=== PATIENT | male | born 1990 | race American Indian/Alaskan Native ===

== ENCOUNTER 2018-02-25 18:18 | Emergency (ER) | payer MEDICAID ==
[2018-02-25 18:19] VITALS: BMI 20.5
[2018-02-25] MEDS ORDERED: cefTRIAXone (Rocephin) 250 mg Inj IM STA (18:56)
[2018-02-25 19:16] VITALS: BP 99/58; RESP 18; TEMP 98.8
--- NOTE | 2018-02-25 19:30 | ED PDOC ---
Arrival/HPI - General Chief Complaint: Male Genitourinary Time Seen by Provider: 02/25/18 18:39 Historian: Patient - History of Present Illness Narrative History of Present Illness (Text): 02/25/18 19:30 27-year-old male presents today with penile discharge. Patient states that he had unprotected sex on 4 days ago and yesterday developed dysuria and noticed a white discharge from the penis. Patient denies testicular pain. Denies fevers or chills. Denies nausea vomiting diarrhea constipation. Denies abdominal pain. No dizziness or weakness. No other complaints patient states he was diagnosed with STD approximately 10 years ago as well. Past Medical History - Provider Review Nursing Documentation Reviewed: Yes - Travel History Have you recently traveled outside [place] w/in the past 3 mons?: No - Infectious Disease Hx of Infectious Diseases: None - Tetanus Immunization Tetanus Immunization: Unknown - Past Medical History Past Medical History: No Previous - Psychiatric Hx Depression: No Hx Emotional Abuse: No Hx Physical Abuse: No Hx Substance Use: No - Past Surgical History Past Surgical History: No Previous - Anesthesia Hx Anesthesia: No Hx Anesthesia Reactions: No Hx Malignant Hyperthermia: No - Suicidal Assessment Feels Threatened In Home Enviroment: No Family/Social History - Physician Review Nursing Documentation Reviewed: Yes Family/Social History: Unknown Family HX Smoking Status: Light Smoker < 10 Cigarettes Daily Hx Alcohol Use: Yes Frequency of alcohol use: Socially Hx Substance Use: No Hx Substance Use Treatment: No Allergies/Home Meds Allergies/Adverse Reactions: Allergies No Known Allergies Allergy (Verified 03/25/12 19:57) Home Medications: Home Meds Medication Instructions Recorded Confirmed No Known Home Med 03/25/12 03/25/12 Review of Systems - Review of Systems Constitutional: absent: Fatigue, Fevers Respiratory: absent: SOB, Cough Cardiovascular: absent: Chest Pain, Palpitations Gastrointestinal: absent: Abdominal Pain, Nausea, Vomiting Genitourinary Male: Dysuria, Other (penile discharge). absent: Frequency, Hematuria Musculoskeletal: absent: Arthralgias, Back Pain Skin: absent: Rash, Pruritis Psychiatric: absent: Anxiety, Depression, Suicidal Ideation Physical Exam Vital Signs Reviewed: Yes Vital Signs Temp Pulse Resp BP Pulse Ox 02/25/18 18:30 98.8 F 79 18 99/58 L 99 Temperature: Afebrile Blood Pressure: Normal Pulse: Regular Respiratory Rate: Normal Appearance: Positive for: Well-Appearing, Non-Toxic, Comfortable Pain Distress: None Mental Status: Positive for: Alert and Oriented X 3 - Systems Exam Head: Present: Atraumatic Mouth: Present: Moist Mucous Membranes Neck: Present: Normal Range of Motion Respiratory/Chest: Present: Clear to Auscultation, Good Air Exchange. No: Respiratory Distress, Accessory Muscle Use Cardiovascular: Present: Regular Rate and Rhythm, Normal S1, S2. 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 No: Penile Discharge, Testicle Tenderness, Penile Swelling, Testicle Swelling Neurological: Present: GCS=15 Skin: Present: Warm, Dry, Normal Color. No: Rashes Psychiatric: Present: Alert, Oriented x 3 Medical Decision Making ED Course and Treatment: 02/25/18 19:32 Patient is nontoxic well-appearing in no distress with stable vital signs Ceftriaxone 250 mg IM Zithromax 1 g p.o. given Gonorrhea and Chlamydia cultures are pending. Advised patient to refrain from sex for 10 days followup with the primary care physician within the next 2 days or return if symptoms worsen persist or if new symptoms develop. Patient was advised to notify all sexual partners and have them tested and treated Patient verbalizes understanding of discharge instructions and need for immediate followup. all aspects of this case were discussed the attending of record. Impression: Urethritis Follow up primary care physician within the next 2 days Return if symptoms worsen persist or if new symptoms develop. - Medication Orders Current Medication Orders: Discontinued Medications Azithromycin (Zithromax) 1,000 mg PO STAT STA PRN Reason: Protocol Stop: 02/25/18 18:57 Ceftriaxone Sodium (Rocephin) 250 mg IM STAT STA PRN Reason: Protocol Stop: 02/25/18 18:57 Disposition/Present on Arrival - Present on Arrival Any Indicators Present on Arrival: No History of DVT/PE: No History of Uncontrolled Diabetes: No Urinary Catheter: No History of Decub. Ulcer: No History Surgical Site Infection Following: None - Disposition Have Diagnosis and Disposition been Completed?: Yes Diagnosis: Penile discharge Disposition: HOME/ ROUTINE Disposition Time: 19:25 Patient Plan: Discharge Condition: GOOD Discharge Instructions (ExitCare): Urethritis Additional Instructions: Follow up primary care physician within the next 2 days Return if symptoms worsen persist or if new symptoms develop. Referrals: Fatmata Rea MD [Staff Provider] - [place] up with primary [facility] [place] - Follow up with primary Forms: [employer] ([place]), WORK NOTE
[2018-02-26 02:07] VITALS: PULSE 80; O2SAT 100
== END 2018-02-26 02:07 | disposition home or self-care (01) ==
LOC: ED 18:18
DX: R36.9 Urethral discharge, unspecified (principal)
CPT/HCPCS: 87491; 87591; 96372; 99284; J0696